=== PATIENT | male | born 1975 ===

== ENCOUNTER 2021-07-01 07:14 | Day surgery (SDC) | payer OTHER | END 2021-07-01 18:00 | disposition home or self-care (01) | LOC: CIR.AMB 07:14 | PROVIDERS: ATTEND Orthopaedic Surgery Hand Surgery | DX: S63.641A Sprain of metacarpophalangeal joint of right thumb, initial encounter (principal); Z20.822 Contact with and (suspected) exposure to COVID-19 ==